=== PATIENT | female | born 1950 | race Caucasian/White ===

== ENCOUNTER 2019-12-08 18:54 | Emergency (ER) | payer OTHER ==
[~2019-12-08] VITALS: Ht 170.2 cm; Wt 73.9 kg
[2019-12-08] MEDS ORDERED: PIRIDIUM (19:34)
[2019-12-08] MEDS ORDERED: BACTRIM DS TAB1 EACH PO (21:13)
== END 2019-12-08 21:31 | disposition home or self-care (01) ==
LOC: ER 18:54
DX: N39.0 Urinary tract infection, site not specified (principal)